=== PATIENT | male | born 1950 | race Asian ===

== ENCOUNTER 2018-01-11 13:11 | Emergency (ER) | payer OTHER ==
[~2018-01-11] VITALS: Ht 185.4 cm; Wt 118.8 kg
[~2018-01-11 13:11] MED LIST changes: -BRIMONIDINE0.2 % OP; -CLOP75TA2 PO; -DORZOL/TIMOL1 ML OP; -LIPITOR10 MG PO; -TRIA37.541 PO; -XALATAN0.005 % OP
[2018-01-11 13:15] VITALS: BP 147/89; TEMP 97
[2018-01-11] MEDS ORDERED: CLOP75TA2 PO (13:20)
[2018-01-11] MEDS ORDERED: AMLODIPINE BESYLATE PO (13:20)
[2018-01-11] MEDS ORDERED: LIPITOR10 MG PO (13:21)
[2018-01-11] MEDS ORDERED: TRIA37.541 PO (13:22)
[2018-01-11] MEDS ORDERED: XALATAN0.005 % OP (13:23)
[2018-01-11] MEDS ORDERED: BRIMONIDINE0.2 % OP (13:23)
[2018-01-11] MEDS ORDERED: DORZOL/TIMOL1 ML OP (13:23)
[2018-01-11 13:53] LABS: PLATELET COUNT 307 K/uL (142-355)
[2018-01-11 14:01] LABS: POTASSIUM 3.1 mmol/L (3.6-5.2)
== END 2018-01-11 16:45 | disposition home or self-care (01) ==
LOC: ED 13:11
DX: S82.292A Other fracture of shaft of left tibia, initial encounter for closed fracture (principal); W10.8XXA Fall (on) (from) other stairs and steps, initial encounter; Y92.89 Other specified places as the place of occurrence of the external cause
CPT/HCPCS: 80053; 85027; 99283

== ENCOUNTER → 2018-01-11 | Outpatient (CLI) | payer OTHER ==
[~2018-01-11] MED LIST: AMLODIPINE BESYLATE PO; BRIMONIDINE0.2 % OP; CLON0.1T16 PO; CLOP75TA2 PO; DORZOL/TIMOL1 ML OP; LIPITOR10 MG PO; LOPRESSOR100 MG PO; PRAVACHOL20 MG PO; TRIA37.541 PO; XALATAN0.005 % OP
== END | disposition short-term general hospital (02) ==
LOC: AMB 12:32
DX: M79.652 Pain in left thigh (principal); W10.8XXA Fall (on) (from) other stairs and steps, initial encounter; Y92.098 Other place in other non-institutional residence as the place of occurrence of the external cause
CPT/HCPCS: A0425; A0429

== ENCOUNTER 2020-04-03 14:21 | Outpatient (CLI) | payer OTHER ==
[~2020-04-03 14:21] MED LIST changes: +BRIMONIDINE0.2 % OP; +CLOP75TA2 PO; +DORZOL/TIMOL1 ML OP; +LIPITOR10 MG PO; +TRIA37.541 PO; +XALATAN0.005 % OP
[2020-04-03 15:43] LABS: POTASSIUM 4.1 mmol/L (3.6-5.2)
== END 2020-04-03 19:24 | disposition home or self-care (01) ==
LOC: LAB 14:21
PROVIDERS: Nurse Practitioner Family
DX: R53.83 Other fatigue (principal); N28.89 Other specified disorders of kidney and ureter; M10.9 Gout, unspecified; M25.50 Pain in unspecified joint
CPT/HCPCS: 80053; 84550; 85651

== ENCOUNTER 2021-03-29 08:58 | Outpatient (CLI) | payer OTHER ==
[2021-03-29 11:01] LABS: PLATELET COUNT 150 K/uL (142-355)
[2021-03-29 12:44] LABS: POTASSIUM 4.5 mmol/L (3.6-5.2)
== END 2021-03-29 19:28 | disposition home or self-care (01) ==
LOC: LABW 08:58
PROVIDERS: ATTEND Internal Medicine
DX: I12.9 Hypertensive chronic kidney disease with stage 1 through stage 4 chronic kidney disease, or unspecified chronic kidney disease (principal); N18.32 Chronic kidney disease, stage 3b; Z86.73 Personal history of transient ischemic attack (TIA), and cerebral infarction without residual deficits; E78.2 Mixed hyperlipidemia; R53.83 Other fatigue; Z79.899 Other long term (current) drug therapy
CPT/HCPCS: 36415; 80053; 81000; 82043; 82330; 82570; 82607; 82728; 83036; 83540; 83550; 83735; 83970; 84100; 84155; 84439; 84443; 85027; 85652; 86038; 86430

== ENCOUNTER 2021-11-19 08:52 | Outpatient (CLI) | payer OTHER ==
[2021-11-19 09:56] LABS: PLATELET COUNT 154 K/uL (142-355)
[2021-11-19 10:18] LABS: POTASSIUM 3.7 mmol/L (3.6-5.2)
== END 2021-11-19 19:40 | disposition home or self-care (01) ==
LOC: LABW 08:52
PROVIDERS: ATTEND Internal Medicine
DX: M10.09 Idiopathic gout, multiple sites (principal); N18.32 Chronic kidney disease, stage 3b; R53.83 Other fatigue; R79.89 Other specified abnormal findings of blood chemistry
CPT/HCPCS: 36415; 80053; 81000; 82043; 82330; 82570; 82607; 82746; 83036; 83540; 83550; 83735; 83970; 84100; 84156; 84439; 84443; 84550; 85027; 85652; 86038; 86431

== ENCOUNTER 2022-05-05 12:06 | Outpatient (CLI) | payer OTHER | END 2022-05-05 19:04 | disposition home or self-care (01) | LOC: RAD 12:06 | PROVIDERS: ATTEND Nurse Practitioner Family | DX: R06.02 Shortness of breath (principal) ==